=== PATIENT | female | born 1955 | race Caucasian/White ===

== ENCOUNTER 2021-04-27 15:43 | Inpatient (IN) ==
[2021-04-27] MEDS ORDERED: methylPREDNISolone SOD SUC 125 MG/2 ML VIAL IV STA (16:23)
[2021-04-27] MEDS ORDERED: ALBUTEROL/IPRATROPIUM 3 ML NEB RESP TX STA (16:23)
[2021-04-27 16:49] LABS: Albumin 3.9 G/DL (3.4-5.0); Bilirubin,Total 0.5 MG/DL (0.20-1.00); Calcium 9.2 MG/DL (8.5-10.1); Osmolality,Calculated 275.7 MOS/KG (273-304); Potassium 4.3 MMOL/L (3.5-5.1); Total Protein 8.2 G/DL (6.4-8.2)
[2021-04-27 17:00] LABS: Basophils % 0.2 % (0.0-0.8); Eosinophils % 0.1 % (0.00-10.9); Hematocrit 43.1 VOL% (35.7-47.0); Hemoglobin 13.9 GM/DL (12.0-16.0); Immature Granulocytes % 1.1 %; Immature Granulocytes Absolute 0.12 #; Lymphocytes # 0.8 10*3/uL (1.4-4.0); Lymphocytes % 6.8 % (21.3-54.2); Mean Corpuscular HGB Conc 32.3 GM/DL (32-36); Mean Corpuscular Volume 97.7 FL (87-102); Mean Platelet Volume 10.1 FL (9.6-12.0); Monocytes % 6.4 % (1.7-12.7); Neutrophils % 85.4 % (38.7-73.9); Platelet Count 297 T/CUMM (130-400); Red Blood Count 4.41 MC/CUMM (3.8-5.5); Red Cell Distribution Width 12.8 % (9.3-17.3); White Blood Count 11.3 T/CUMM (4-12)
[2021-04-27] MEDS ORDERED: cefTRIAXone 1,000 MG in SODIUM CHLORIDE 0.9% 100 ML IV STA (19:01)
[2021-04-27] MEDS ORDERED: ONDANSETRON 4 MG/2 ML VIAL IV PRN (23:02)
[2021-04-27] MEDS ORDERED: ACETAMINOPHEN 325 MG TABLET PO PRN (23:02)
[2021-04-27] MEDS: methylPREDNISolone SOD SUC 125 MG/2 ML VIAL IV SCH (23:25)
[2021-04-27] MEDS: DOCUSATE SODIUM 100 MG CAPSULE PO SCH (23:26)
[2021-04-28] MEDS: ALBUTEROL/IPRATROPIUM 3 ML NEB RESP TX SCH ×5 (00:10→19:40)
[2021-04-28] MEDS: oxyCODONE/ACETAMINOPHEN 5-325 MG TABLET PO PRN ×4 (04:24→20:02)
[2021-04-28] MEDS: methylPREDNISolone SOD SUC 125 MG/2 ML VIAL IV SCH ×3 (06:06→19:58)
[2021-04-28] MEDS ORDERED: PANTOPRAZOLE 40 MG TABLET PO SCH (09:00)
[2021-04-28] MEDS ORDERED: traMADol 50 MG TABLET PO PRN (09:08)
[2021-04-28] MEDS: cefTRIAXone 1,000 MG in SODIUM CHLORIDE 0.9% 100 ML IV SCH (10:13)
[2021-04-28] MEDS: METOPROLOL SUCCINATE XL 25 MG TABLET PO SCH (10:14)
[2021-04-28] MEDS: DOCUSATE SODIUM 100 MG CAPSULE PO SCH ×2 (10:14→20:51)
[2021-04-28] MEDS: PANTOPRAZOLE 40 MG TABLET PO SCH (10:58)
[2021-04-28] MEDS: NICOTINE 14 MG/24 HR PATCH TRANSDERM SCH (10:59)
[2021-04-28] MEDS: BUDESONIDE/FORMOTEROL 160-4.5 INHALER 6 GM INH SCH ×2 (11:07→20:04)
[2021-04-28] MEDS: ALPRAZolam 0.5 MG TABLET PO PRN (16:28)
[2021-04-28] MEDS: MIRTAZAPINE 15 MG TABLET PO SCH (20:07)
[2021-04-28] MEDS: GABAPENTIN 300 MG CAPSULE PO SCH (20:07)
[2021-04-28] MEDS: traZODone 50 MG TABLET PO SCH (20:07)
[2021-04-28] MEDS: guaiFENesin 200 MG/10 ML UDCUP PO PRN (20:51)
[2021-04-28] MEDS: BENZONATATE 100 MG CAPSULE PO SCH (20:51)
[2021-04-29] MEDS: ALBUTEROL/IPRATROPIUM 3 ML NEB RESP TX SCH ×6 (00:26→20:10)
[2021-04-29] MEDS: ALPRAZolam 0.5 MG TABLET PO PRN ×2 (02:18→22:34)
[2021-04-29] MEDS: guaiFENesin 200 MG/10 ML UDCUP PO PRN (02:18)
[2021-04-29] MEDS: methylPREDNISolone SOD SUC 125 MG/2 ML VIAL IV SCH ×4 (02:19→22:30)
[2021-04-29 05:19] LABS: Basophils % 0.1 % (0.0-0.8); Hematocrit 45.1 VOL% (35.7-47.0); Immature Granulocytes % 1.3 %; Immature Granulocytes Absolute 0.17 #; Lymphocytes # 0.5 10*3/uL (1.4-4.0); Lymphocytes % 3.8 % (21.3-54.2); Mean Corpuscular Volume 102.7 FL (87-102); Mean Platelet Volume 8.9 FL (9.6-12.0); Monocytes % 4.1 % (1.7-12.7); Neutrophils % 90.7 % (38.7-73.9); Platelet Count 314 T/CUMM (130-400); Red Blood Count 4.39 MC/CUMM (3.8-5.5); Red Cell Distribution Width 12.7 % (9.3-17.3); White Blood Count 13.6 T/CUMM (4-12)
[2021-04-29 05:39] LABS: Alanine Aminotransferase 16 U/L (13-56); Albumin 3.6 G/DL (3.4-5.0); Alkaline Phosphatase 62 U/L (45-117); Aspartate Amino Transferase 10 U/L (0-37); Bilirubin,Total < 0.39 MG/DL (0.20-1.00); Blood Urea Nitrogen 18 MG/DL (7-18); Calcium 9.2 MG/DL (8.5-10.1); Carbon Dioxide 31 MMOL/L (21-32); Estimated Glom Filtration Rate 87 ML/MIN; Glucose 139 MG/DL (74-106); Osmolality,Calculated 280.5 MOS/KG (273-304); Potassium 4.1 MMOL/L (3.5-5.1); Sodium 139 MMOL/L (136-145); Total Protein 7.5 G/DL (6.4-8.2)
[2021-04-29 05:49] LABS: Band Neutrophils 1 % (0-10); Hypochromasia 1+; Lymphocytes 2 % (20-55); Macrocytosis Slight; Platelet Estimate Normal; Segmented Neutrophils 95 % (50-85); Total Cells Counted 100
[2021-04-29] MEDS ORDERED: hydrALAZINE 20 MG/1 ML VIAL IV PRN (08:55)
[2021-04-29] MEDS: BUDESONIDE/FORMOTEROL 160-4.5 INHALER 6 GM INH SCH ×2 (09:50→22:32)
[2021-04-29] MEDS: cefTRIAXone 1,000 MG in SODIUM CHLORIDE 0.9% 100 ML IV SCH (09:51)
[2021-04-29] MEDS: NICOTINE 14 MG/24 HR PATCH TRANSDERM SCH (09:51)
[2021-04-29] MEDS: ROFLUMILAST 500 MCG TABLET PO SCH (09:51)
[2021-04-29] MEDS: GABAPENTIN 300 MG CAPSULE PO SCH ×2 (09:52→22:29)
[2021-04-29] MEDS: BENZONATATE 100 MG CAPSULE PO SCH ×3 (09:52→22:29)
[2021-04-29] MEDS: METOPROLOL SUCCINATE XL 25 MG TABLET PO SCH (09:52)
[2021-04-29] MEDS: PANTOPRAZOLE 40 MG TABLET PO SCH (09:52)
[2021-04-29] MEDS: DOCUSATE SODIUM 100 MG CAPSULE PO SCH ×2 (09:52→22:30)
[2021-04-29] MEDS: MIRTAZAPINE 15 MG TABLET PO SCH (22:28)
[2021-04-29] MEDS: traZODone 50 MG TABLET PO SCH (22:29)
[2021-04-30] MEDS: ALBUTEROL/IPRATROPIUM 3 ML NEB RESP TX SCH ×5 (00:05→18:55)
[2021-04-30] MEDS: methylPREDNISolone SOD SUC 125 MG/2 ML VIAL IV SCH ×4 (01:56→23:00)
[2021-04-30 07:14] LABS: Basophils % 0.2 % (0.0-0.8); Immature Granulocytes % 1.6 %; Immature Granulocytes Absolute 0.24 #; Lymphocytes # 0.4 10*3/uL (1.4-4.0); Lymphocytes % 2.6 % (21.3-54.2); Mean Corpuscular HGB Conc 31.8 GM/DL (32-36); Mean Corpuscular Volume 100.2 FL (87-102); Mean Platelet Volume 8.7 FL (9.6-12.0); Monocytes % 3.7 % (1.7-12.7); Neutrophils % 91.9 % (38.7-73.9); Platelet Count 276 T/CUMM (130-400); Red Blood Count 4.39 MC/CUMM (3.8-5.5); Red Cell Distribution Width 12.9 % (9.3-17.3); White Blood Count 14.7 T/CUMM (4-12)
[2021-04-30 07:25] LABS: Calcium 8.9 MG/DL (8.5-10.1); Osmolality,Calculated 288.1 MOS/KG (273-304); Potassium 3.9 MMOL/L (3.5-5.1)
[2021-04-30 07:39] LABS: Lymphocytes 3 % (20-55); Platelet Estimate Adequate; Segmented Neutrophils 93 % (50-85); Total Cells Counted 100
[2021-04-30 07:40] LABS: Hypochromasia Slight; Microcytosis Slight
[2021-04-30] MEDS: BENZONATATE 100 MG CAPSULE PO SCH ×4 (10:41→22:59)
[2021-04-30] MEDS: METOPROLOL SUCCINATE XL 25 MG TABLET PO SCH (10:41)
[2021-04-30] MEDS: GABAPENTIN 300 MG CAPSULE PO SCH ×2 (10:41→22:58)
[2021-04-30] MEDS: ROFLUMILAST 500 MCG TABLET PO SCH (10:41)
[2021-04-30] MEDS: PANTOPRAZOLE 40 MG TABLET PO SCH (10:41)
[2021-04-30] MEDS: NICOTINE 14 MG/24 HR PATCH TRANSDERM SCH (10:42)
[2021-04-30] MEDS: cefTRIAXone 1,000 MG in SODIUM CHLORIDE 0.9% 100 ML IV SCH (10:42)
[2021-04-30] MEDS: BUDESONIDE/FORMOTEROL 160-4.5 INHALER 6 GM INH SCH ×2 (10:45→23:31)
[2021-04-30] MEDS: DOCUSATE SODIUM 100 MG CAPSULE PO SCH ×2 (10:46→23:00)
[2021-04-30] MEDS: ALPRAZolam 0.5 MG TABLET PO PRN ×2 (13:58→22:57)
[2021-04-30] MEDS: MIRTAZAPINE 15 MG TABLET PO SCH (22:58)
[2021-04-30] MEDS: traZODone 50 MG TABLET PO SCH (22:59)
[2021-05-01] MEDS: ALBUTEROL/IPRATROPIUM 3 ML NEB RESP TX SCH ×6 (00:10→19:49)
[2021-05-01] MEDS: methylPREDNISolone SOD SUC 125 MG/2 ML VIAL IV SCH ×4 (04:11→20:06)
[2021-05-01 05:39] LABS: Calcium 8.6 MG/DL (8.5-10.1); Potassium 3.5 MMOL/L (3.5-5.1)
[2021-05-01] MEDS: BENZONATATE 100 MG CAPSULE PO SCH ×3 (10:10→22:15)
[2021-05-01] MEDS: PANTOPRAZOLE 40 MG TABLET PO SCH (10:10)
[2021-05-01] MEDS: ROFLUMILAST 500 MCG TABLET PO SCH (10:10)
[2021-05-01] MEDS: DOCUSATE SODIUM 100 MG CAPSULE PO SCH ×2 (10:10→20:11)
[2021-05-01] MEDS: METOPROLOL SUCCINATE XL 25 MG TABLET PO SCH (10:11)
[2021-05-01] MEDS: NICOTINE 14 MG/24 HR PATCH TRANSDERM SCH (10:11)
[2021-05-01] MEDS: GABAPENTIN 300 MG CAPSULE PO SCH ×2 (10:11→22:13)
[2021-05-01] MEDS: ALPRAZolam 0.5 MG TABLET PO PRN ×2 (10:12→22:15)
[2021-05-01] MEDS: BUDESONIDE/FORMOTEROL 160-4.5 INHALER 6 GM INH SCH ×2 (10:13→20:09)
[2021-05-01] MEDS: cefTRIAXone 1,000 MG in SODIUM CHLORIDE 0.9% 100 ML IV SCH ×2 (14:45→22:15)
[2021-05-01] MEDS ORDERED: guaiFENesin/DM ER 600-30 MG TABLET PO PRN (19:33)
[2021-05-01] MEDS: traZODone 50 MG TABLET PO SCH (22:12)
[2021-05-01] MEDS: MIRTAZAPINE 15 MG TABLET PO SCH (22:14)
[2021-05-02] MEDS: ALBUTEROL/IPRATROPIUM 3 ML NEB RESP TX SCH ×4 (00:45→11:49)
[2021-05-02] MEDS: methylPREDNISolone SOD SUC 125 MG/2 ML VIAL IV SCH ×2 (02:10→09:06)
[2021-05-02 04:06] VITALS: BP 150/74
[2021-05-02 06:05] LABS: Calcium 8.6 MG/DL (8.5-10.1); Osmolality,Calculated 290.1 MOS/KG (273-304); Potassium 3.9 MMOL/L (3.5-5.1)
[2021-05-02] MEDS: METOPROLOL SUCCINATE XL 25 MG TABLET PO SCH (09:06)
[2021-05-02] MEDS: PANTOPRAZOLE 40 MG TABLET PO SCH (09:06)
[2021-05-02] MEDS: BUDESONIDE/FORMOTEROL 160-4.5 INHALER 6 GM INH SCH (09:06)
[2021-05-02] MEDS: BENZONATATE 100 MG CAPSULE PO SCH (09:06)
[2021-05-02] MEDS: NICOTINE 14 MG/24 HR PATCH TRANSDERM SCH (09:07)
[2021-05-02] MEDS: ROFLUMILAST 500 MCG TABLET PO SCH (09:07)
[2021-05-02] MEDS: DOCUSATE SODIUM 100 MG CAPSULE PO SCH (09:07)
[2021-05-02] MEDS: GABAPENTIN 300 MG CAPSULE PO SCH (09:07)
== END 2021-05-02 12:45 | disposition home health service (06) | DRG 190 ==
LOC: EDBD → EDUNIT# → N.ED 15:43 → N.EDINP 19:05 → N.5E 22:19
PROVIDERS: ADMIT Family Medicine; ATTEND Family Medicine